=== PATIENT | female | born 1955 | race Caucasian/White ===

== ENCOUNTER 2019-09-06 11:47 | Day surgery (SDC) | payer BC, MEDICARE ==
[~2019-09-06 11:47] MED LIST: CHONDR SU A NA/HYALUR INTRAOC KIT (SURGICARE) ONE; EPINEPHRINE INJ/PF 1 MG/1 ML AMPULE ONE; KETOROLAC TROMETHAMINE 0.45% 4 DROP/0.4 ML DROPERETTE OD PRN; LIDOCAINE 1% INJ-PF (10 MG/ML) 30 ML SDV ONE
[2019-09-06] MEDS: TETRACAINE HCL 0.5% OPH SOLN 4 ML OD PRN ×3 (12:22→12:47)
[2019-09-06] MEDS: TROPICAMIDE 1% OPH SOLN 15 ML OD PRN ×3 (12:22→12:41)
[2019-09-06] MEDS: BESIFLOXACIN HCL 0.6% OPH SUSP 5 ML BOTTLE OD PRN ×4 (12:23→13:14)
[2019-09-06] MEDS: CYCLOPENTOLATE 0.2%/PHENYLEPHRINE 1% OPH SOLN 2 ML OD PRN ×3 (12:23→12:41)
[2019-09-06] MEDS ORDERED: MIDAZOLAM 2 MG/2 ML INJ ONE (12:26)
[2019-09-06] MEDS ORDERED: ONDANSETRON HCL INJ/PF 4 MG/2 ML SDV ONE (12:26)
[2019-09-06] MEDS ORDERED: FENTANYL CITRATE INJ/PF 100 MCG/2 ML AMPUL ONE (12:27)
[2019-09-06] MEDS: DORZOLAMIDE HCL 2%/TIMOLOL MALEAT 0.5% OPH SOLN 10 ML OD PRN ×2 (13:14)
--- NOTE | 2019-09-06 19:27 | Operative Report ---
Operative Report-[facility] Operative Report: PREOPERATIVE DIAGNOSIS: Nuclear, cortical and posterior subcapsular cataract, right eye POSTOPERATIVE DIAGNOSIS: Nuclear, cortical and posterior subcapsular cataracts, right eye PROCEDURE: Phacoemulsification and posterior chamber intraocular lens implant, right eye PROCEDURE DATE: [September 06, 2019 ] SURGEON: Bronson Yoder MD Next LOADING CHECKER: [Kelly] ANESTHESIA: Topical with IV sedation next COMPLICATIONS: None TISSUE TO PATHOLOGY: None ESTIMATED BLOOD LOSS: None INDICATION FOR SURGERY: [Ms. Alanis is a 63 year old female] Who presents to our clinic complaining of difficulty seeing, to read and drive due to blurry vision in both eyes. On examination, she was found to have best corrected visual acuity of [20/25 glare 20/100] in the right eye. Ophthalmoscopy revealed a [+1] nuclear, [+3] corneal degeneration, [trace] posterior subcapsular cataract in the right eye with normal appearing cornea, vitreous, retina and optic nerve. I discussed the findings of the exam with the patient. We discussed the risks, benefits and alternatives of cataract extraction and intraocular lens implant in the right eye as a means of improving her vision. Risks that were discussed with the patient include infection, bleeding, retinal detachment and possible need for additional surgery. The patient understands that she may need to wear glasses after surgery. After discussion, the patient indicated her interest in having this procedure performed by signing an informed witness consent form. REPORT OF PROCEDURE: On the day of surgery, the patient was given a topical application to the right eye to consist of drop of Tetracaine 0.5%, tropicamide 1%, Cyclomidril, Besivance 0.6% and Acular 0.45%. The patient was then taken to the operating room in a supine position in a standard eye bed. Intravenous sedation was administered and she was prepped and draped in the standard fashion. A timeout was performed to confirm the surgical site. Attention was directed to the right eye where a paracentesis was created at the 11:30 position at the corneal limbus with a 15 degree blade. The anterior chamber was filled with 0.3 mL of 1% methylparaben free lidocaine and after 30 seconds the anterior chamber was filled with viscoelastic material. A 3 plane corneal incision was then made at the 9 o'clock position at the cornea limbus with a keratome. A continuous curvilinear capsulorrhexis was then made in the anterior capsule of the lens with a cystotome. The lens was hydrodissected using balanced saline s olution. The lens nucleus was then removed by phacoemulsification using the stop and chop technique. CDE [10.48]. The remaining cortical material was then removed from the posterior capsular bag using irrigation and aspiration. The posterior capsule bag was filled with viscoelastic material and a lens implant was inserted into the posterior capsule bag. I have chosen for this case is a one piece acrylic lens from [employer] model [SN60WF], serial number [[id number]], lens power [20.0]. The lens was removed from its package, inspected and found to be free of defects it was loaded into a [place] D vp ancillary. The vp ancillary was passed through the temporal wound and the lens was advanced into the posterior capsular bag. The lens implant was centered in the posterior capsular bag with the [place] spatula the viscoelastic material was removed from the eye using irrigation and aspiration. The wounds were closed by stromal hydration and they were tested with the Weck-Amy sponges and found to have no leaks. Intraocular pressure was assessed by manual palpitation found to be with in the physiologic range. The drape and speculum were removed. Drops of Durezol, Combigan and gatifloxacin were instilled in the right eye. The patient was then taken to the recovery room in good condition. The patient tolerated the procedure very well. The patient was given a prescription for gatifloxacin, Durezol and Ilervo to use every 2 hours while awake today. She will return my clinic tomorrow for follow-up evaluation.
== END 2019-09-06 13:50 | disposition home or self-care (01) ==
LOC: SC 11:47
PROVIDERS: ATTEND Ophthalmology
DX: H25.811 Combined forms of age-related cataract, right eye (principal); I25.10 Atherosclerotic heart disease of native coronary artery without angina pectoris; I10 Essential (primary) hypertension; I47.1 Supraventricular tachycardia; Z79.82 Long term (current) use of aspirin; Z79.899 Other long term (current) drug therapy; Z88.5 Allergy status to narcotic agent
CPT/HCPCS: 66984; 82962; V2632; J2250; J3490 ×3; J0171; J3010; J2405

== ENCOUNTER 2019-11-08 14:24 | Day surgery (SDC) | payer BC, MEDICARE ==
[~2019-11-08 14:24] MED LIST changes: -KETOROLAC TROMETHAMINE 0.45% 4 DROP/0.4 ML DROPERETTE OD PRN; +KETOROLAC TROMETHAMINE 0.45% 4 DROP/0.4 ML DROPERETTE OS PRN; -LIDOCAINE 1% INJ-PF (10 MG/ML) 30 ML SDV ONE; +LIDOCAINE 1%/PHENYLEPHRINE 1.5% 0.8 ML SYRINGE ONE
[2019-11-08] MEDS ORDERED: FENTANYL CITRATE INJ/PF 100 MCG/2 ML AMPUL ONE (14:37)
[2019-11-08] MEDS ORDERED: ONDANSETRON HCL INJ/PF 4 MG/2 ML SDV ONE (14:37)
[2019-11-08] MEDS ORDERED: MIDAZOLAM 2 MG/2 ML INJ ONE ×2 (14:37→15:53)
[2019-11-08] MEDS: BESIFLOXACIN HCL 0.6% OPH SUSP 5 ML BOTTLE OS PRN ×4 (15:10→16:05)
[2019-11-08] MEDS: CYCLOPENTOLATE 0.2%/PHENYLEPHRINE 1% OPH SOLN 2 ML OS PRN ×3 (15:10→15:25)
[2019-11-08] MEDS: TETRACAINE HCL 0.5% OPH SOLN 4 ML OS PRN ×3 (15:10→15:44)
[2019-11-08] MEDS: TROPICAMIDE 1% OPH SOLN 15 ML OS PRN ×3 (15:10→15:25)
[2019-11-08] MEDS: PREDNISOLONE ACETATE 1% OPH SUSP 5 ML OS PRN ×2 (15:55→16:05)
[2019-11-08] MEDS: DORZOLAMIDE HCL 2%/TIMOLOL MALEAT 0.5% OPH SOLN 10 ML OS PRN ×2 (15:55→16:05)
--- NOTE | 2019-11-08 22:28 | Operative Report ---
Operative Report-[facility] Operative Report: PREOPERATIVE DIAGNOSIS: Nuclear, cortical and posterior subcapsular cataract, left eye POSTOPERATIVE DIAGNOSIS: Nuclear, cortical and posterior subcapsular cataracts, left eye PROCEDURE: Phacoemulsification and posterior chamber intraocular lens implant, left eye PROCEDURE DATE: [November 08, 2019] SURGEON: Bronson Yoder MD Next HOME APPLIANCES MECHANIC: [Kelly] ANESTHESIA: Topical with IV sedation next COMPLICATIONS: None TISSUE TO PATHOLOGY: None ESTIMATED BLOOD LOSS: None INDICATION FOR SURGERY: [Ms. Alanis is a 63 year old female] Who presents to our clinic complaining of difficulty seeing, to read and drive due to blurry vision in both eyes. On examination, she was found to have best corrected visual acuity of [20/50] in the left eye. Ophthalmoscopy revealed a [+1] nuclear, [+3] corneal degeneration, [+1] posterior subcapsular cataract in the left eye with normal appearing cornea, vitreous, retina and optic nerve. I discussed the findings of the exam with the patient. We discussed the risks, benefits and alternatives of cataract extraction and intraocular lens implant in the left eye as a means of improving her vision. Risks that were discussed with the patient include infection, bleeding, retinal detachment and possible need for additional surgery. The patient understands that she may need to wear glasses after surgery. After discussion, the patient indicated her interest in having this procedure performed by signing an informed witness consent form. REPORT OF PROCEDURE: On the day of surgery, the patient was given a topical application to the left eye to consist of drop of Tetracaine 0.5%, tropicamide 1%, Cyclomidril, Besivance 0.6% and Acular 0.45%. The patient was then taken to the operating room in a supine position in a standard eye bed. Intravenous sedation was administered and she was prepped and draped in the standard fashion. A timeout was performed to confirm the surgical site. Attention was directed to the left eye where a paracentesis was created at the 5:30 position at the corneal limbus with a 15 degree blade. The anterior chamber was filled with 0.3 mL of 1% methylparaben free lidocaine and after 30 seconds the anterior chamber was filled with viscoelastic material. A 3 plane corneal incision was then made at the 3 o'clock position at the cornea limbus with a keratome. A continuous curvilinear capsulorrhexis was then made in the anterior capsule of the lens with a cystotome. The lens was hydrodissected using balanced saline solution. The lens nucleus was then removed by phacoemulsification using the stop and chop technique. CDE [6.91]]. The remaining cortical material was then removed from the posterior capsular bag using irrigation and aspiration. The posterior capsule bag was filled with viscoelastic material and a lens implant was inserted into the posterior capsule bag. I have chosen for this case is a one piece acrylic lens from [employer] model [SN60WF], serial number [[id number]], lens power [20.0]. The lens was removed from its package, inspected and found to be free of defects it was loaded into a [place] D general operator. The general operator was passed through the temporal wound and the lens was advanced into the posterior capsular bag. The lens implant was centered in the posterior capsular bag with the [place] spatula the viscoelastic material was removed from the eye using irrigation and aspiration. The wounds were closed by stromal hydration and they were tested with the Weck-Amy sponges and found to have no leaks. Intraocular pressure was assessed by manual palpitation found to be with in the physiologic range. The drape and speculum were removed. Drops of Durezol, Combigan and gatifloxacin were instilled in the left eye. The patient was then taken to the recovery room in good condition. The patient tolerated the procedure very well. The patient was given a prescription for gatifloxacin, Durezol and Ilervo to use every 2 hours while awake today. She will return my clinic tomorrow for follow-up evaluation.
== END 2019-11-08 16:37 | disposition home or self-care (01) ==
LOC: SC 14:24
PROVIDERS: ATTEND Ophthalmology
DX: H25.812 Combined forms of age-related cataract, left eye (principal); E11.9 Type 2 diabetes mellitus without complications; I10 Essential (primary) hypertension; E78.00 Pure hypercholesterolemia, unspecified; M19.90 Unspecified osteoarthritis, unspecified site; Z79.84 Long term (current) use of oral hypoglycemic drugs; Z79.899 Other long term (current) drug therapy; Z79.82 Long term (current) use of aspirin; Z83.511 Family history of glaucoma
CPT/HCPCS: 82962; 00142; 66984; V2632; J2250; J3490 ×3; J0171; J3010; J2405; 142